=== PATIENT | male | born 1950 | race Caucasian/White ===

== ENCOUNTER 2019-11-26 08:54 | Outpatient (CLI) | payer MEDICARE | END 2019-11-26 23:59 | disposition home or self-care (01) | LOC: ROC 08:54 | PROVIDERS: ATTEND Radiology Radiation Oncology | DX: C79.89 Secondary malignant neoplasm of other specified sites (principal); K11.7 Disturbances of salivary secretion | CPT/HCPCS: 99214; G0463 ==

== ENCOUNTER 2020-02-03 09:19 | Outpatient (CLI) | payer MEDICARE | END 2020-02-03 23:59 | disposition home or self-care (01) | LOC: ROC 09:19 | PROVIDERS: ATTEND Radiology Radiation Oncology | DX: C77.0 Secondary and unspecified malignant neoplasm of lymph nodes of head, face and neck (principal); Z79.899 Other long term (current) drug therapy | CPT/HCPCS: G0463-95 ==

== ENCOUNTER → 2020-02-15 | Outpatient (CLI) | payer MEDICARE | END | disposition home or self-care (01) | LOC: ROC 08:10 | PROVIDERS: ATTEND Radiology Radiation Oncology | DX: Z08 Encounter for follow-up examination after completed treatment for malignant neoplasm (principal); C77.0 Secondary and unspecified malignant neoplasm of lymph nodes of head, face and neck | CPT/HCPCS: G0463-95 ==

== ENCOUNTER 2020-06-01 07:49 | Outpatient (CLI) | payer MEDICARE | END 2020-06-01 23:59 | disposition home or self-care (01) | LOC: ROC 07:49 | PROVIDERS: ATTEND Radiology Radiation Oncology | DX: Z08 Encounter for follow-up examination after completed treatment for malignant neoplasm (principal); Z85.89 Personal history of malignant neoplasm of other organs and systems | CPT/HCPCS: 99212; G0463 ==

== ENCOUNTER → 2020-11-08 | Outpatient (CLI) | payer MEDICARE | END | disposition home or self-care (01) | LOC: ROC 09:34 | PROVIDERS: ATTEND Radiology Radiation Oncology | DX: Z08 Encounter for follow-up examination after completed treatment for malignant neoplasm (principal); Z85.89 Personal history of malignant neoplasm of other organs and systems | CPT/HCPCS: G2251 ==